=== PATIENT | female | born 1990 | race Caucasian/White ===

== ENCOUNTER → 2018-05-18 | Outpatient (CLI) | payer OTHER ==
[~2018-05-18] MED LIST: FLU60SYR36 IM; MULT1TAB54 PO; PREN-127 PO
[2018-05-18 16:43] LABS: PLATELET COUNT, AUTOMATED 330 K/uL (150-450)
== END ==
LOC: LAB 08:21
PROVIDERS: ATTEND Obstetrics & Gynecology
DX: Z34.91 Encounter for supervision of normal pregnancy, unspecified, first trimester (principal); R82.79 Other abnormal findings on microbiological examination of urine
CPT/HCPCS: 36415; 81001; 85025; 86592; 86703; 86762; 86850; 86900; 86901; 87088; 87340

== ENCOUNTER → 2018-06-12 | Outpatient (CLI) | payer OTHER | LOC: LAB 08:32 | PROVIDERS: ATTEND Obstetrics & Gynecology | DX: Z34.91 Encounter for supervision of normal pregnancy, unspecified, first trimester (principal); Z11.3 Encounter for screening for infections with a predominantly sexual mode of transmission; Z11.8 Encounter for screening for other infectious and parasitic diseases | CPT/HCPCS: 87491; 87591 ==

== ENCOUNTER → 2018-09-03 | Outpatient (CLI) | payer OTHER ==
--- NOTE | 2018-09-03 11:41 | RADIOLOGY IMAGING REPORT ---
FAC[place] [facility] [place]IENT NAME: Tiffanie Ramirez : 1990 MR: [id number] V: [id number] EXAM DATE: ORDERING PHYSICIAN: JEREMIAH ELLIOTT TECHNOLOGIST: Location: [facility] - [place] Patient: Tiffanie Ramirez : 1990 Visit/Account:[id number] Date of Sevice: 09/03/2018 EXAMINATION: Ultrasound transabdominal OB > 14 weeks with anatomic evaluation HISTORY: Anatomic survey COMPARISON: None. TECHNIQUE: Transabdominal imaging was performed for assessment of the fetus and maternal pelvic structures. T ransvaginal imaging was not performed. FINDINGS: Placenta: Anterior without previa. Uterus: Gravid, otherwise normal Cervix: Long and closed. Maternal Ovaries: Not visualized. Maternal and other adnexa findings: Not visualized Intrauterine gestations: One. presentation: Breech heart rate: Normal and regular at 155 bpm Amniotic fluid index: 12.62 cm Largest amniotic fluid pocket: 3.65 cm Gestational Parameters: BPD: 4.95 cm 21 weeks/ zero days, 54% HC: 18.25 cm 20 weeks/ five days, 31% AC: 16.53 cm 21 weeks/ four days, 67% FL: 3.45 cm 21 weeks/ zero days, 1% Average ultrasound age (AUA): 21 weeks/one days, JOHANNA 01/13/2019 Estimated gestational age by LMP: 20 weeks/six days, JOHANNA 01/15/2019 Estimated weight (EFW): 405 grams +/- 59 grams EFW for LMP: 63 percentile Anatomic Survey: Intracranial structures, 4-chamber heart, stomach, kidneys, urinary bladder, spine, 3-vessel cord and cord insertion are unremarkable. Two upper and two lower extremities visualized. Cardiac ventricula r outflow tracts, palate and lips are unremarkable in appearance. IMPRESSION: Single viable fetus in breech presentation with an estimated gestational age by measurem ents of 21 weeks and one day. Estimated gestational age by LMP is 20 weeks and six days. Estimated weight is 405 g equivalent to the 63rd percentile Report Dictated By: Rosy Logan MD at 09/03/2018 11:28 AM Report E-Signed By: Rosy Logan MD at 09/03/2018 11:35 AM WSN:[email or web address]
== END ==
LOC: RAD 07:59
PROVIDERS: ATTEND Obstetrics & Gynecology
DX: Z02.9 Encounter for administrative examinations, unspecified (principal)